=== PATIENT | male | born 2000 | race Caucasian/White ===

== ENCOUNTER → 2022-12-13 11:04 | Outpatient (BNVA) | payer MEDICAID, SELFPAY | PROVIDERS: Family Provider Family Medicine; PCP Family Medicine; Visit Provider Family Medicine | DX: Z91.018 Allergy to other foods (principal); F45.21 Hypochondriasis; R07.81 Pleurodynia | CPT/HCPCS: 86003 ==

== ENCOUNTER 2023-08-18 17:15 | Outpatient (CLI) | payer MEDICAID, SELFPAY ==
--- NOTE | 2023-08-18 17:23 | XRR_ITS ---
PROCEDURE INFORMATION: Exam: XR Right Shoulder Exam date and time: 08/18/2023 5:38 PM Age: 22 years old Clinical indication: Patient HX: Right anterior shoulder pain after straining injury x 3 weeks ago; No previous injury or limited rom TECHNIQUE: Imaging protocol: Radiologic exam of the right shoulder. Views: 2 or more views. COMPARISON: No relevant prior studies available. FINDINGS: Bones/joints: Normal. Soft tissues: Normal. XR/XR shoulder RT min 2V* [id number] IMPRESSION: No acute findings.
== END 2023-08-18 17:16 | disposition home or self-care (01) ==
PROVIDERS: PCP Family Medicine; Visit Provider Emergency Medicine
DX: S46.911A Strain of unspecified muscle, fascia and tendon at shoulder and upper arm level, right arm, initial encounter (principal); X58.XXXA Exposure to other specified factors, initial encounter
CPT/HCPCS: 73030

== ENCOUNTER 2024-08-21 16:56 | Outpatient (CLI) | payer MEDICAID, SELFPAY ==
--- NOTE | 2024-08-21 17:04 | XR_ITS ---
WS: [id number] Right shoulder, 3 views, 08/21/2024 Clinical Data: SHOULDER JOINT PAIN, RIGHT Comparison: Right shoulder, 08/18/2023 Findings: No fractures or dislocations are seen. The AC joint is normal. The adjacent right clavicle, right scapula and ribs are normal. The soft tissues are unremarkable. XR/XR shoulder RT min 2V* [id number] Impression: Negative right shoulder.
== END 2024-08-21 16:57 | disposition home or self-care (01) ==
LOC: RAD 17:00
PROVIDERS: PCP Family Medicine; Visit Provider Family Medicine
DX: M25.511 Pain in right shoulder (principal)
CPT/HCPCS: 73030

== ENCOUNTER 2024-09-05 15:05 | Outpatient (CLI) | payer MEDICAID, SELFPAY ==
--- NOTE | 2024-09-05 15:07 | MR_ITS ---
WS: [id number] MRI RIGHT SHOULDER NONCONTRAST TECHNIQUE: Sagittal T2, coronal T1, T2 and proton density imaging. Axial gradient PDE imaging. CLINICAL INFORMATION: RIGHT SHOULDER JOINT PAIN COMPARISON: None. FINDINGS: Fluid and edema at the AC joint with a small joint effusion and capsular thickening. Small amount of edema in the abutting clavicle and acromion likely reactive. No significant AC joint widening. Findings are likely inflammatory. Small amount of subacromial subdeltoid fluid. Moderate downsloping acromion. Slight subacromial spurring with impingement on the distal supraspinatus with mild narrowing of the subacromial space. Tendinopathy within the supraspinatus. Supraspinatus and infraspinatus appear intact. Normal teres minor. Subscapularis tendon is intact. Normal biceps tendon within the bicipital groove. Intra-articular biceps tendon appears intact. Biceps labral anchor appears intact. Normal bone marrow signal in the humerus and glenoid. MR/MR shoulder RT wo con* [id number] IMPRESSION: 1. Fluid and edema at the AC joint likely inflammatory synovitis. No significa nt AC joint widening. 2. Moderate downsloping acromion with subacromial spurring. Impingement on the distal supraspinatus with tendinopathy. 3. Rotator cuff is intact. 4. Normal biceps tendon in the bicipital groove. 5. No other suspicious findings.
== END 2024-09-05 15:06 | disposition home or self-care (01) ==
PROVIDERS: PCP Family Medicine; Visit Provider Family Medicine
DX: M75.41 Impingement syndrome of right shoulder (principal); R93.7 Abnormal findings on diagnostic imaging of other parts of musculoskeletal system; M77.8 Other enthesopathies, not elsewhere classified; M67.813 Other specified disorders of tendon, right shoulder
CPT/HCPCS: 73221

== ENCOUNTER 2024-10-17 09:49 | Outpatient (CLI) | payer MEDICAID, SELFPAY ==
--- NOTE | 2024-10-17 09:52 | FL_ITS ---
WS: [id number] Exam: FL barium swallow modifd [id number] Date/Time of Exam: 10/17/2024 10:06 AM Reason For Exam: Other dysphagia Fluoroscopy time: 4min [id number] minutes # of spot films: 1 Modified barium swallow test was performed in conjunction with the speech therapy service. Oropharyngeal phase of swallowing was normal. The patient tolerated all consistencies of barium mixture foodstuffs without aspiration or penetration. The patient experienced some difficulty swallowing a barium tablet with pudding consistency barium. The tablet was retained in the midesophagus. A swallow of pudding consistency barium facilitated the tablet passing into the stomach. FL/FL barium swallow modifd [id number] IMPRESSION: 1. No penetration or aspiration. 2. The barium tablet was retained in the midesophagus. Subsequent swallowing of pudding consistency barium propelled the tablet into the stomach. An underlyin g narrowing or partial obstruction of the esophagus is not completely ruled out . A conventional esophagram might be considered for further work-up. A separate report with findings and recommendations will follow from the speech therapy service.
== END 2024-10-17 09:50 | disposition home or self-care (01) ==
PROVIDERS: PCP Family Medicine; Visit Provider Family Medicine
DX: R13.10 Dysphagia, unspecified (principal); R93.89 Abnormal findings on diagnostic imaging of other specified body structures
CPT/HCPCS: 74230; 92611